=== PATIENT | male | born 1950 | race Caucasian/White ===

== ENCOUNTER 2016-04-17 09:16 | Emergency (ER) | payer OTHER ==
[~2016-04-17] VITALS: Ht 185.4 cm; Wt 118.2 kg
[~2016-04-17 09:16] MED LIST: ASPI-628 PO; IBUP200C PO; LORA-610 PO; P EP PO; VICODIN; [UNRECOGNIZED DRUG - CODE] PO
[2016-04-17 09:24] VITALS: BP 155/58; PULSE 79; RESP 10; O2SAT 97
--- NOTE | 2016-04-17 09:26 | ED.REPORT ---
HPI-Chest Pain 40 and Over Date of Service Apr 17, 2016 ED Provider: Maco Olson DO A 5 year old male with a history of paroxysmal atrial fibrillation and recent diagnoses of bronchitis and bronchiolitis is brought to the ED via EMS due to productive cough and shortness of breath. The pt began feeling short of breath last night, which became progressively worse. He was also experiencing lightheadedness and nausea since last night and vomiting x2 this morning. By this morning, he felt unable to stand. He denies chest pain or lower extremity edema. The pt is taking Tylenol with codeine. Nursing Notes Stated Complaint: DIFFICULTY BREATHING Nursing Notes Reviewed: Yes Allergies: Coded Allergies: soy (Verified Allergy, Severe, 04/17/16) Penicillins (Verified Allergy, Unknown, 10/18/13) hydrocodone (Verified Allergy, Unknown, 10/18/13) prednisone (Verified Allergy, Unknown, DOESNT KNOW, 10/19/13) Uncoded Allergies: TETANUS (Allergy, Unknown, ARM SWELLING, 10/19/13) Scheduled Aspirin (Aspir 81) 81 Mg Tablet.dr 81 MG PO DAILY Loratadine (Loratadine) 10 Mg Tab.rapdis 10 MG PO DAILY Scheduled PRN ([Vicodin]) PRN 10/325MG Albuterol HFA (Proair HFA) 8.5 Gm Hfa.aer.ad 2 PUFFS INHALATION Q4H PRN PRN For Shortness of Breath Ibuprofen (Ibuprofen) 200 Mg Capsule 200 MG PO QID PRN PRN KANE Ondansetron ODT (Zofran ODT) 4 Mg Tablet 4 MG PO Q4H PRN PRN For Nausea Miscellaneous Medications Pseudoephedrine/Triprolidine (Aprodine Tablet) 1 Each Tablet 1 EACH PO diphenhydrAMINE (Benadryl Allergy) 12.5 Mg/5 Ml Liquid 12.5 MG PO diphenhydrAMINE (Benadryl Allergy) 12.5 Mg/5 Ml Liquid 25 MG PO General Time Seen by MD: 09:24 Chief Complaint Shortness of breath Hx Obtained From: Patient, EMS Arrived By: Ambulance Sudden in Onset?: No Onset Occurred: 13 - 16 hours ago Symptom Duration: Since onset Recent Healthcare: No recent hospitalization, Recent doctor visit Similar Sx Previous: No Past Medical History Past Medical History arthritis paroxysmal atrial fibrillation Past Surgical History bilateral knee repair Reports: Tonsillectomy Smoking History Unknown if Ever Smoker Ambulatory Status Independent Review of Systems Constitutional: Denies: Fever Respiratory: Reports: Prod cough, clear, Shortness of breath GI: Reports: Nausea, Vomiting, Denies: Abdominal pain Musculoskeletal: Denies: Back pain, Neck pain Skin: Denies Rash Neurologic: Reports: Lightheaded Psychiatric: Reports: Hallucinations, auditory (recheck) Complete sys rev & neg: except as marked. Physical Exam Initial Vital Signs Vital Signs (First) Date Time Temp Pulse Resp B/P Pulse Ox O2 Delivery O2 Flow Rate FiO2 04/17/16 09:24 37.1 79 10 155/58 97 Room Air 04/17/16 10:29 2 Initial VS: Reviewed General/Constitutional: Awake, Alert Distress / Hydration: Positive: Distress mild Respiratory / Chest: Atraumatic, Breath sounds = bilat, No respiratory distress expiratory wheeze rales in bilateral bases Cardiovascular: Heart rate NL, Regular rhythm, Heart sounds NL Abdomen: Atraumatic, Soft, Non-tender Neck: Atraumatic, Supple, Full range of motion Back: Atraumatic, Full range of motion Lower Extremity / Pelvis / MS: Atraumatic, Full range of motion, No edema Skin: Atraumatic, Color NL, No rash, Warm, Dry Neurologic: Oriented X3, Speech NL, No motor deficits, No sensory deficits, CN II - XII intact Psychiatric: Affect NL, Mood NL Head / Eyes: Atraumatic, Normocephalic, PERRL, EOMI ENT: Atraumatic, Airway patent, Mucous membranes moist Upper Extremity / MS: Atraumatic, Full range of motion Interpretation & Diagnostics Interpretation & Diagnostics: Angiography CT: IMPRESSION: 1. No evidence of pulmonary embolism. 2. Sub-centimeter nodules within the right lung, the largest measuring 4 mm. No priors are available for comparison. Overall nonspecific and recommend interval followup is below. Fleischner Society criteria for lung nodule followup. Nodule size (mm)Low-risk patientHigh-risk patient<=4No follow-up needed.Follow-up at 12 months; if no change, no further follow-up.>[id number] CT at 12 months; if no change, no further follow-up needed.Initial follow-up CT at 6-12 months, then 18-24 months if no change.>6-8Initial follow-up CT at 6-12 months, then 18-24 months if no change.Initial follow-up CT at 3-6 months, then 9-12 months and 24 months if no change.>8Follow-up CT at 3,9 and 24 months or PET and/or biopsySame as for low-risk patientsNon-solid (ground-glass) or partly solid nodules may require longer follow-up to exclude indolent adenocarcinoma. Dictated by: Lesa Camp M.D. on 04/17/2016 at 14:42 Approved by: Lesa Camp M.D. on 04/17/2016 at 14:42 Lab Results Interpretation Result Diagram: 04/17/16 0948 04/17/16 0948 Test 04/17/16 09:48 04/17/16 13:08 04/17/16 13:22 White Blood Count 10.3th/mm3 (3.8-10.1) Red Blood Count 4.99mil/mm3 (4.40-5.80) Hemoglobin 15.7g/dL (13.8-17.2) Hematocrit 45.0% (41.0-50.0) Mean Corpuscular Volume 90.2fL (81-100) Mean Corpuscular Hemoglobin 31.5pg (27.0-35.0) Mean Corpuscular Hemoglobin Concent 34.9% (32.0-37.0) Red Cell Distribution Width 11.7% (12.3-15.4) Platelet Count 139bil/L (150-400) Neutrophils (%) (Auto) 75.7% (40-74) Lymphocytes (%) (Auto) 14.1% (14-46) Monocytes (%) (Auto) 9.0% (4-12) Eosinophils (%) (Auto) 0.4% (0-5) Basophils (%) (Auto) 0.2% (0-3) Sodium Level 128mEq/L (134-144) Potassium Level 3.9mEq/L (3.5-5.2) Chloride Level 90mEq/L (97-108) Carbon Dioxide Level 23mmol/L (18-29) Blood Urea Nitrogen 8mg/dL (8-27) Creatinine 0.78mg/dL (0.76-1.27) Estimat Glomerular Filtration Rate 107mL/min (>59) Glucose Level 152mg/dL (60-99) Calcium Level 9.0mg/dL (8.5-10.1) Magnesium Level 2.0mg/dL (1.6-2.6) Total Bilirubin 0.6mg/dL (0.0-1.2) Aspartate Amino Transf (AST/SGOT) 18U/L (0-50) Alanine Aminotransferase (ALT/SGPT) 22U/L (0-44) Alkaline Phosphatase 63U/L (25-160) Pro-B-Type Natriuretic Peptide 261.5pg/mL (0-210) Total Protein 7.3g/dL (6.4-8.4) Albumin 4.2g/dL (3.4-5.0) D-Dimer 1.1mg/L (<0.50) Troponin T < 0.010ug/L (0.0-0.011) ECG Interpretation ECG Interpretation: normal sinus rhythm with a rate of 74 RBBB PAV no obvious ischemic changes Time: 10:01 Interpreted by: ED physician ECG Interpretation: normal sinus rhythm with a rate of 75 atrial premature complex RBBB Time: 11:46 Interpreted by: ED physician X-Ray Chest Interpretation Chest Xray Interpretation: IMPRESSION: No acute pulmonary process. Dictated by: Lesa Camp M.D. on 04/17/2016 at 10:18 Approved by: Lesa Camp M.D. on 04/17/2016 at 10:18 Interpretation / Wet Read by: Interpret - Radiologist Re-Eval/Medical Decision Med Decision/Clinical Course Patient presents FAMILY with what looks like a upper respiratory infection however he had some very atypical symptoms which prompted a more diagnostically intensive workup. Patient appeared profoundly nauseated and reportedly "dizzy" without any focal neurologic deficits and a stable gait, his chest x-ray was unremarkable and for this reason troponins and d-dimer were obtained. Serial troponins are negative EKG shows a right bundle branch block without ischemic changes chest CT is without pulmonary embolism but with incidental pulmonary nodules which the patient is made aware of. He will be discharged with Zofran and Inderal. He is made aware of his moderate degree of hyponatremia and discharge instructions are given accordingly. Return precautions given as well. Source of Hx: Old records Time of Eval: 10:13 Re-Evaluation/Progress Note: Pt rechecked, who is now complaining of lightheadedness, nausea, and mild headache. He denies focal weakness. Time of Eval: 11:02 Patient Status: Condition improved Re-Evaluation/Progress Note: Pt rechecked, who reports that he is feeling dizzy after the breathing treatment. Time of Eval: 11:32 Patient Status: Condition improved Re-Evaluation/Progress Note: Pt rechecked, who is feeling better after Lorazepam. Time of Eval: 12:39 Patient Status: Condition improved Re-Evaluation/Progress Note: Pt rechecked, who is sleeping and comfortable. Radiology results are discussed. Time of Eval: 14:53 Patient Status: Condition improved Re-Evaluation/Progress Note: Pt rechecked, who is resting comfortably. Radiology results, diagnosis, and the plan for discharge are discussed. The pt understands and agrees with the plan. All questions were addressed at this time. Counseled Regarding: Diagnosis, Lab results, Need for follow-up, When/why to return to ED Discharge & Departure Primary Impression: URI (upper respiratory infection) URI type: unspecified URI Qualified Code: J06.9 - Acute upper respiratory infection, unspecified Additional Impressions: Hyponatremia Pulmonary nodule Disposition: Home Discharge Condition All VS Reviewed: Yes Condition: Stable Patient Instructions: Hyponatremia (ED), Upper Respiratory Infection (ED) Additional Instructions: Thank you for entrusting us with your care today. Take Zofran as prescribed for nausea. Use albuterol every 4 hours. Your sodium is low, be sure to stay hydrated and drink plenty of fluids with sodium in them. Additionally there are some incidental very small pulmonary nodules of unclear etiology which you can follow-up with your regular doctor regarding. Follow up with your primary care physician for further evaluation. You should have your sodium level repeated to make sure it is not going down. Return to the emergency department if you develop any new or worsening symptoms. Referrals: Ulices Dickerson MD (PCP) Scribe Attestation Portions of this note were transcribed by Reynold Pope I, Dr. Olson personally performed the history, physical exam and medical decision-making; I reviewed and confirmed the accuracy of the information in the transcribed note. Signed by: Mateo Root, 04/17/16 and 15:16. copies to: Ulices Dickerson MD, Timothy S DO Apr 17, 2016 09:26 REYNOLD POPE Apr 17, 2016 09:50
[2016-04-17] MEDS ORDERED: Albuterol-Ipratropium 3 mL Inhalation Solution NEB ONE (09:45)
[2016-04-17] MEDS ORDERED: Albuterol 2.5 mg/3 mL Inhalation Solution NEB ONE (09:45)
[2016-04-17 09:56] LABS: BASOPHILS % (AUTO) 0.2 % (0-3); EOSINOPHILS % (AUTO) 0.4 % (0-5); Mean Corpuscular Hemoglobin 31.5 pg (27.0-35.0); Mean Corpuscular Volume 90.2 fL (81-100); NEUTROPHILS % (AUTO) 75.7 % (40-74); Platelet Count 139 bil/L (150-400)
[2016-04-17 10:21] LABS: TROPONIN T < 0.010 ug/L (0.0-0.011)
[2016-04-17] MEDS ORDERED: 0.9% Sodium Chloride 1,000 ML IV ONE ×2 (10:25→10:35)
[2016-04-17 10:29] VITALS: PULSE 81; RESP 16; O2SAT 96
[2016-04-17] MEDS: Ondansetron 2 mg/mL 2 mL Inj IVPUSH PRN ×2 (10:43→14:15)
--- NOTE | 2016-04-17 10:45 | DRSVH ---
PROCEDURE: X-RAY CHEST, TWO VIEWS ([id number]) INDICATIONS: cough TECHNIQUE: 2 views of the chest were acquired. COMPARISON: [facility], , CHEST 1VW (PORTABLE), 02/12/2013, 5:47. FINDINGS: Surgical changes and devices: None. Lungs and pleura: No pleural effusions or pneumothorax. Small focus of likely left basilar atelectas is. Mediastinum: Mediastinal contours are normal. Heart size is normal. Bones and chest wall: No suspicious bony abnormalities. Soft tissues appear unremarkable. IMPRESSION: No acute pulmonary process. Dictated by: Lesa Camp M.D. on 04/17/2016 at 10:18 Approved by: Lesa Camp M.D. on 04/17/2016 at 10:18
[2016-04-17 11:15] VITALS: BP 144/60; PULSE 93; RESP 28; O2SAT 98
[2016-04-17 13:05] VITALS: BP 144/54; PULSE 84; RESP 15; O2SAT 96
--- NOTE | 2016-04-17 14:48 | DRSVH ---
PROCEDURE: CT ANGIO CHEST PULMONARY EMBOLISM ([id number]) INDICATIONS: dyspnea, elevated ddimer TECHNIQUE: After the administration of intravenous contrast, 2 mm thick sections acquired from the pulmonary api juan antonio to the posterior costophrenic angles. 3-dimensional maximum intensity projection (MIP) coronal a nd sagittal reformats were then acquired through the thorax. For radiation dose reduction, the follo wing was used: automated exposure control, adjustment of mA and/or kV according to patient size. COMPARISON: None. FINDINGS: Image quality: Excellent. Pulmonary arteries: Pulmonary arteries are normal in size, and demonstrate no intraluminal filling d efects to suggest central pulmonary embolism. Lungs and pleura: 3 mm right upper lobe nodule is present on series 5 image 32. No pleural effusions or pneumothorax. 4 mm right lower lobe nodule series 5 image 49 is present. Central and peripheral a irways are patent. Mediastinum: Heart size is normal, without pericardial effusion. No mediastinal or hilar adenopathy . Thoracic aorta is normal in caliber and enhancement. Esophagus is normal in caliber, with mild hi atal hernia. Bones and chest wall: No suspicious bony lesions. Ribs and thoracic spine appear intact throughout. Thyroid gland is unremarkable. No axillary or supraclavicular adenopathy. Abdomen: Visualized upper abdominal solid organs appear normal in the early arterial phase of enhanc ement. IMPRESSION: 1. No evidence of pulmonary embolism. 2. Sub-centimeter nodules within the right lung, the largest measuring 4 mm. No priors are available for comparison. Overall nonspecific and recommend interval followup is below. Fleischner Society criteria for lung nodule followup. Nodule size (mm)Low-risk patientHigh-risk patient<=4No follow-up needed.Follow-up at 12 months; if no change, no further follow-up.>[id number] CT at 12 months; if no change, no further follow-up neede d.Initial follow-up CT at 6-12 months, then 18-24 months if no change.>6-8Initial follow-up CT at 6- 12 months, then 18-24 months if no change.Initial follow-up CT at 3-6 months, then 9-12 months and 24 months if no change.>8Follow-up CT at 3,9 and 24 months or PET and/or biopsySame as for low-risk patientsNon-solid (ground-glass) or partly solid nodules may require longer follow-up to exclude indolent adenocarcinoma. Dictated by: Lesa Camp M.D. on 04/17/2016 at 14:42 Approved by: Lesa Camp M.D. on 04/17/2016 at 14:42
[2016-04-17] MEDS ORDERED: ONDA4TAB9 PO ×2 (15:09→15:38)
[2016-04-17] MEDS ORDERED: ALBU8.5H2 INHALATION ×2 (15:09→15:38)
[2016-04-17 15:41] VITALS: BP 112/54; PULSE 69; RESP 17
== END 2016-04-17 15:39 | disposition home or self-care (01) ==
LOC: EDUNIT# 09:16 → SED 09:16 → EDBD 09:16 → SED 15:39
DX: J06.9 Acute upper respiratory infection, unspecified (principal); E87.1 Hypo-osmolality and hyponatremia; R91.1 Solitary pulmonary nodule; I48.0 Paroxysmal atrial fibrillation; Z88.0 Allergy status to penicillin; Z88.5 Allergy status to narcotic agent; Z88.8 Allergy status to other drugs, medicaments and biological substances; Z79.82 Long term (current) use of aspirin
CPT/HCPCS: 36415; 71020; 71275; 80053; 83735; 83880; 84484; 85025; 85379; 93005; 96361; 96374; 96375; 96376; 99285; J2060; J2405; J7030; J7613; J7620; Q9967